=== PATIENT | female | born 1950 | race Caucasian/White ===

== ENCOUNTER 2016-12-12 10:34 | Emergency (ER) | payer BC ==
[~2016-12-12] VITALS: Ht 152.4 cm; Wt 106.2 kg
[2016-12-12] MEDS ORDERED: ACETAMINOPHEN 500 MG TABLET PO ONE (12:00)
[2016-12-12] MEDS ORDERED: SODIUM CHLORIDE FLUSH 10ML SYR IVF ONE (12:00)
[2016-12-12] MEDS ORDERED: SODIUM CHLORIDE 0.9% 1,000ML IVBOLUS ONE ×2 (12:00→14:00)
[2016-12-12] MEDS ORDERED: ACETAMINOPHEN 500 MG TABLET ONE (12:11)
[2016-12-12 12:49] LABS: BLOOD UREA NITROGEN 13 mg/dL (7-18)
[2016-12-12] MEDS ORDERED: MORPHINE SULFATE 4 MG/ML, 1ML IVPush PRN (14:00)
[2016-12-12] MEDS ORDERED: MORPHINE SULFATE 4 MG/ML, 1ML ONE (14:17)
[2016-12-12] MEDS ORDERED: CEFTRIAXONE PMX 1GM/50ML 50 ML IVPB ONE (15:00)
[2016-12-12] MEDS ORDERED: DOXYCYCLINE 100MG TABLET PO ONE (15:00)
[2016-12-12] MEDS ORDERED: CEFTRIAXONE PMX 1GM/50ML 50 ML ONE (15:13)
[2016-12-12] MEDS ORDERED: OMNIPAQUE 350 MG/ML, 150 ML BOTTLE ONE (15:25)
[2016-12-12 16:41] VITALS: BP 143/62
== END 2016-12-12 16:43 | disposition home or self-care (01) ==
LOC: ED 13:09
DX: J18.9 Pneumonia, unspecified organism (principal); I10 Essential (primary) hypertension
CPT/HCPCS: 36415; 71275; 74022; 80048; 81001; 82040; 83605; 84145; 85025; 87040; 96361; 96365; 96375; 99285; J0696; J7030; Q9967